=== PATIENT | male | born 1930 | race Caucasian/White ===

== ENCOUNTER 2017-05-26 14:32 | Emergency (ER) | payer OTHER ==
[~2017-05-26] VITALS: Ht 180.3 cm; Wt 87.3 kg
[~2017-05-26 14:32] MED LIST: ADULT LOW DOSE81 M1 PO; ADVAIR 500/501 DISK IH; ALBUTEROL SULF8.5 GM IH; ALDACTONE50 MG PO; ALTACE10 MG PO; ASPIR 8181 MG PO; ASPIR-LOW81 M1 PO; ASPIRIN E.C.81 M1 PO; ASPIRIN81 M1 PO; ATROVENT 00.5 MG/2.5 IH; AUGMENTIN500 MG PO; AVENTYL,PAMELOR10 MG PO; Advair HFA 115/21 IH; Aldactone PO; BACTRIM,SEPT1 TABLET PO; CARVEDILOL6.25 MG PO; CELEXA20 MG PO; CENTRUM SILVER1 EAC1 PO; CENTRUM SILVER1 EAC3 PO; CITALOPRAM HBR20 MG PO; CITRATE OF MAG296 ML PO; COUMADIN,JANTOVE2 MG PO; COZAAR100 MG PO; CYMBALTA30 MG PO; Cozaar PO; DULERA 200 MCG/13 GM IH; DUONEB 2.5-0.5 M3 ML AEROSOL; DUONEB 2.5-0.5 M3 ML IH; ENDOCET 5-3251 EACH PO; FLORASTOR250 MG PO; FUROSEMIDE20 MG PO; Flagyl PO; GABAPENTIN300 MG PO; GABAPENTIN600 MG PO; GUAIFENESIN400 MG PO; HYDROCODON-ACE1 EAC7 PO; HYDROCODON-ACE1 EACH; IMDUR30 MG; IMDUR30 MG PO; IMDUR60 MG PO; ISOSORBIDE MONO60 MG PO; Imdur PO; LASIX40 MG PO; LEVAQUIN500 MG PO; LISINOPRIL10 MG PO; LO-DOSE ASPIRIN81 M1 PO; LOPRESSOR25 MG PO; LORCET 5-325 M1 EACH PO; LOSARTAN; LOSARTAN POTAS100 MG PO; Lactinex,Floranex PO; Levaquin PO; Lopressor PO; METOPROLOL SUCC25 MG PO; MICRO-K,K-DUR,10 ME1 PO; MOBIC15 MG PO; MONOKET,ISMO20 MG PO; MONTELUKAST SOD10 MG PO; MORPHINE SULFAT15 MG PO; Marinol PO; NEURONTIN300 MG PO; NITROSTAT,NITR0.4 M1 SL; NITROSTAT0.4 MG SL; NORTRIPTYLINE H10 MG PO; NORVASC10 MG PO; NORVASC2.5 MG PO; NORVASC5 MG PO; Neurontin PO; Norvasc PO; PLAVIX75 MG PO; PREDNISONE10 MG PO; PRILOSEC40 MG PO; PROMETHAZINE HC25 M1 PO; PROTONIX40 MG PO; Protonix PO; Proventil,Ventolin H IH; RAPAFLO8 MG PO; REQUIP1 MG PO; REQUIP2 MG PO; SIMVASTATIN20 MG PO; SIMVASTATIN80 MG PO; SINGULAIR10 MG PO; TOPROL XL50 MG PO; TYLENOL EXTRA500 MG PO; Toprol XL PO; Tylenol Regular Stre PO; ULTRAM50 MG PO; VENTOLIN17 GM IH; VICODIN,LORT1 TABLET PO; Vancocin Oral Soluti PO; Vicodin,Lortab 5/500 PO; ZITHROMAX Z-PA250 MG PO; ZOCOR20 MG PO; ZOCOR80 M1 PO; ZOCOR80 MG PO; Zocor PO; celeXA PO; predniSONE PO
[2017-05-26 16:26] LABS: ADD MIUA? YES; BILIRUBIN NEGATIVE; BLOOD SMALL; COLOR AMBER ((YELLOW)); GLUCOSE (STRIP) NEGATIVE; KETONES 5; LEUKOCYTES NEGATIVE; NITRITE NEGATIVE; PROTEIN (STRIP) 100; SPECIFIC GRAVITY 1.023 (1.000-1.030)
[2017-05-26 16:36] LABS: HEMATOCRIT 39.9 % (38.0-50.0); MCH 30.6 PG (29.0-34.0); MCHC 33.1 G/DL (30.0-36.0); MCV 92.6 FL (86-99); MEAN PLAT.VOLUME 9.3 uM^3 (9.0-12.4); PLATELET COUNT 170 K/uL (156-360); RBC DIS.WIDTH-SD 47.8 % (39-53); RED BLOOD COUNT 4.31 M/uL (4.00-5.50); WHITE BLOOD COUNT 6.4 K/uL (4.1-10.2)
[2017-05-26 16:42] LABS: BACTERIA 1+ /HPF; CASTS PRESENT /LPF; CRYSTALS NONE SEEN; EPITHELIAL CELLS RARE /HPF; HYALINE CASTS 0-5 /LPF; MUCUS 3+ /LPF; RED BLOOD CELLS 0-5 /HPF (0-5); UCUL ADDED? NO; WHITE BLOOD CELLS 0-5 /HPF (0-5)
[2017-05-26 16:51] LABS: CHLORIDE 109 mEq/L (99-109); POTASSIUM 3.2 mEq/L (3.7-5.4); SODIUM 143 mEq/L (136-147)
[2017-05-26 16:53] LABS: GLUCOSE 91 mg/dL (70-99)
[2017-05-26 16:55] LABS: ANION GAP 11 MEQ/L (2-14)
[2017-05-26 16:57] LABS: GFR ESTIMATE (CALCULATED) > 59 mL/min/
[2017-05-26 16:58] LABS: UREA NITROGEN (BUN) 16 mg/dL (9-23)
[2017-05-26 17:01] LABS: TROP-I INTERPRETATION NEGATIVE; TROPONIN-I 0.02 ng/mL (0.0-0.30)
[2017-05-26 20:13] VITALS: BP 124/88
== END 2017-05-26 20:15 | disposition home or self-care (01) ==
LOC: EME 14:32
PROVIDERS: Physician Assistant Medical
DX: R42 Dizziness and giddiness (principal); R51 Headache; R06.02 Shortness of breath; I10 Essential (primary) hypertension; E78.5 Hyperlipidemia, unspecified; I25.10 Atherosclerotic heart disease of native coronary artery without angina pectoris; Z86.73 Personal history of transient ischemic attack (TIA), and cerebral infarction without residual deficits; Z85.72 Personal history of non-Hodgkin lymphomas; Z95.1 Presence of aortocoronary bypass graft; Z95.5 Presence of coronary angioplasty implant and graft; Z99.81 Dependence on supplemental oxygen; Z79.82 Long term (current) use of aspirin
CPT/HCPCS: 70450; 71010; 80048; 81003; 83880; 84484; 85027; 93005; 99281; 99284

== ENCOUNTER 2017-07-11 20:31 | Emergency (ER) | payer OTHER ==
[~2017-07-11] VITALS: Ht 180.3 cm; Wt 87.7 kg
[2017-07-11 21:24] LABS: HEMATOCRIT 34.7 % (38.0-50.0); MCH 31.1 PG (29.0-34.0); MCHC 33.4 G/DL (30.0-36.0); MEAN PLAT.VOLUME 9.4 uM^3 (9.0-12.4); PLATELET COUNT 109 K/uL (156-360); RBC DIS.WIDTH-CV 14.3 % (11.8-14.6); RBC DIS.WIDTH-SD 48.3 % (39-53); RED BLOOD COUNT 3.73 M/uL (4.00-5.50); WHITE BLOOD COUNT 6.6 K/uL (4.1-10.2)
[2017-07-11 21:40] LABS: CHLORIDE 110 mEq/L (99-109); POTASSIUM 3.8 mEq/L (3.7-5.4); SODIUM 144 mEq/L (136-147)
[2017-07-11 21:42] LABS: GLUCOSE 107 mg/dL (70-99)
[2017-07-11 21:43] LABS: ANION GAP 9 MEQ/L (2-14)
[2017-07-11 21:44] LABS: TOTAL BILIRUBIN 0.5 mg/dL (0.0-1.0)
[2017-07-11 21:46] LABS: ALKALINE PHOSPHATASE 62 IU/L (3-129); GFR ESTIMATE (CALCULATED) > 59 mL/min/
[2017-07-11 21:47] LABS: DIRECT BILIRUBIN 0.2 mg/dL (0.0-0.3); UREA NITROGEN (BUN) 19 mg/dL (9-23)
[2017-07-11 21:49] LABS: LIPASE 13 U/L (1.0-51.0)
[2017-07-11 21:53] LABS: TROP-I INTERPRETATION NEGATIVE; TROPONIN-I 0.03 ng/mL (0.0-0.30)
[2017-07-11 22:27] LABS: ADD MIUA? NO; BILIRUBIN NEGATIVE; BLOOD NEGATIVE; COLOR YELLOW ((YELLOW)); GLUCOSE (STRIP) NEGATIVE; KETONES NEGATIVE; LEUKOCYTES NEGATIVE; NITRITE NEGATIVE; PROTEIN (STRIP) 30; SPECIFIC GRAVITY 1.021 (1.000-1.030); UCUL ADDED? NO; UROBILINOGEN 0.2 MG/DL (0.2-1.0)
[2017-07-11] MEDS ORDERED: TRAMADOL HCL50 MG PO (23:25)
[2017-07-12 00:18] VITALS: BP 156/76
[2017-07-15] MEDS ORDERED: NEURONTIN300 MG PO ×2 (09:16)
== END 2017-07-12 00:19 | disposition home or self-care (01) ==
LOC: EME 20:31
PROVIDERS: Emergency Medicine
DX: M54.5 Low back pain (principal); R10.9 Unspecified abdominal pain; Z87.442 Personal history of urinary calculi; F03.90 Unspecified dementia, unspecified severity, without behavioral disturbance, psychotic disturbance, mood disturbance, and anxiety; E78.5 Hyperlipidemia, unspecified; I10 Essential (primary) hypertension; Z86.73 Personal history of transient ischemic attack (TIA), and cerebral infarction without residual deficits; Z85.72 Personal history of non-Hodgkin lymphomas; Z95.1 Presence of aortocoronary bypass graft; Z96.653 Presence of artificial knee joint, bilateral; Z88.0 Allergy status to penicillin
CPT/HCPCS: 71020; 74177; 80048; 80076; 81003; 83690; 84484; 85027; 93005; 99281; 99285

== ENCOUNTER 2017-07-13 16:31 | Emergency (ER) | payer OTHER ==
[~2017-07-13] VITALS: Ht 180.3 cm; Wt 83.0 kg
[~2017-07-13 16:31] MED LIST changes: +TRAMADOL HCL50 MG PO
[2017-07-13 17:00] VITALS: BP 130/61
[2017-07-15] MEDS ORDERED: NEURONTIN300 MG PO ×2 (09:16)
== END 2017-07-13 18:00 | disposition left against medical advice (07) ==
LOC: EME 16:31
DX: R10.9 Unspecified abdominal pain (principal); Z53.21 Procedure and treatment not carried out due to patient leaving prior to being seen by health care provider

== ENCOUNTER 2017-07-14 18:45 | Inpatient (IN) | payer OTHER ==
[~2017-07-14] VITALS: Ht 190.5 cm; Wt 129.4 kg
[2017-07-14 19:47] LABS: HEMATOCRIT 32.1 % (38.0-50.0); MCH 31.5 PG (29.0-34.0); MCV 92.8 FL (86-99); MEAN PLAT.VOLUME 9.3 uM^3 (9.0-12.4); PLATELET COUNT 116 K/uL (156-360); RBC DIS.WIDTH-CV 14.3 % (11.8-14.6); RBC DIS.WIDTH-SD 48.2 % (39-53); RED BLOOD COUNT 3.46 M/uL (4.00-5.50); WHITE BLOOD COUNT 5.6 K/uL (4.1-10.2)
[2017-07-14 19:58] LABS: CHLORIDE 110 mEq/L (99-109); POTASSIUM 3.6 mEq/L (3.7-5.4); SODIUM 142 mEq/L (136-147)
[2017-07-14 20:00] LABS: GLUCOSE 108 mg/dL (70-99)
[2017-07-14 20:01] LABS: ANION GAP 8 MEQ/L (2-14)
[2017-07-14 20:04] LABS: ALKALINE PHOSPHATASE 56 IU/L (3-129); GFR ESTIMATE (CALCULATED) > 59 mL/min/; TOTAL BILIRUBIN 1.1 mg/dL (0.0-1.0)
[2017-07-14 20:05] LABS: UREA NITROGEN (BUN) 19 mg/dL (9-23)
[2017-07-14 20:35] LABS: ADD MIUA? YES; BILIRUBIN NEGATIVE; BLOOD SMALL; COLOR YELLOW ((YELLOW)); GLUCOSE (STRIP) NEGATIVE; KETONES NEGATIVE; LEUKOCYTES NEGATIVE; NITRITE NEGATIVE; PROTEIN (STRIP) 30; SPECIFIC GRAVITY 1.021 (1.000-1.030)
[2017-07-14 20:40] LABS: BACTERIA NONE SEEN /HPF; EPITHELIAL CELLS RARE /HPF; HYALINE CASTS 0-5 /LPF; MUCUS TRACE /LPF; RED BLOOD CELLS 0-5 /HPF (0-5); UCUL ADDED? NO; WHITE BLOOD CELLS 0-5 /HPF (0-5)
[2017-07-14 21:49] LABS: DIRECT BILIRUBIN 0.5 mg/dL (0.0-0.3)
[2017-07-15 00:01] LABS: AMYLASE 61 IU/L (1-118)
[2017-07-15 00:10] LABS: LIPASE 4 U/L (1.0-51.0)
[2017-07-15 03:30] VITALS: BP 138/64
[2017-07-15 06:16] LABS: HEMATOCRIT 31.7 % (38.0-50.0); MCH 30.7 PG (29.0-34.0); MCHC 32.2 G/DL (30.0-36.0); MCV 95.5 FL (86-99); MEAN PLAT.VOLUME 9.2 uM^3 (9.0-12.4); PLATELET COUNT 110 K/uL (156-360); RBC DIS.WIDTH-CV 14.4 % (11.8-14.6); RBC DIS.WIDTH-SD 49.9 % (39-53); RED BLOOD COUNT 3.32 M/uL (4.00-5.50); WHITE BLOOD COUNT 5.2 K/uL (4.1-10.2)
[2017-07-15 06:40] LABS: ALKALINE PHOSPHATASE 62 IU/L (3-129); ANION GAP 7 MEQ/L (2-14); CHLORIDE 108 MEQ/L (99-109); GFR ESTIMATE (CALCULATED) > 59 mL/min/; GLUCOSE 93 mg/dL (70-99); SAMPLE HEMOLYSIS CHECK 0; SAMPLE ICTERIC CHECK 0; SAMPLE LIPEMIA CHECK 0; SODIUM 142 MEQ/L (136-147); TOTAL BILIRUBIN 1.3 MG/DL (0.0-1.0); UREA NITROGEN (BUN) 16 mg/dL (9-23)
[2017-07-15 07:21] VITALS: BP 151/75
[2017-07-15] MEDS ORDERED: OMEPRAZOLE40 M1 PO (09:15)
[2017-07-15] MEDS ORDERED: SINGULAIR10 MG PO (09:15)
[2017-07-15] MEDS ORDERED: NEURONTIN300 MG PO (09:16)
[2017-07-15] MEDS ORDERED: ELIQUIS5 MG PO (09:16)
[2017-07-15] MEDS ORDERED: LO-DOSE ASPIRIN81 M1 PO (09:16)
[2017-07-15] MEDS ORDERED: ULTRAM50 MG PO (09:17)
[2017-07-15 11:17] VITALS: BP 137/76
[2017-07-15 15:05] VITALS: BP 147/73
[2017-07-15 17:40] VITALS: BP 182/102
[2017-07-15 19:44] VITALS: BP 148/72
[2017-07-16 00:22] VITALS: BP 165/81
[2017-07-16 08:14] VITALS: BP 140/60
[2017-07-16 13:33] LABS: INTER. NORMALIZED RATIO 1.4; PROTHROMBIN TIME 15.2 SEC (10.2-12.9)
[2017-07-16 13:35] LABS: PTT 33.5 SEC (25-37)
[2017-07-16 15:00] VITALS: BP 117/70
[2017-07-16 20:13] VITALS: BP 153/70
[2017-07-17 01:03] VITALS: BP 152/84
[2017-07-17 05:37] VITALS: BP 140/78
[2017-07-17 08:42] VITALS: BP 171/78
[2017-07-17 08:59] LABS: HEMATOCRIT 33.4 % (38.0-50.0); MCH 30.8 PG (29.0-34.0); MCHC 33.5 G/DL (30.0-36.0); MCV 91.8 FL (86-99); MEAN PLAT.VOLUME 9.8 uM^3 (9.0-12.4); PLATELET COUNT 140 K/uL (156-360); RBC DIS.WIDTH-SD 47.6 % (39-53); RED BLOOD COUNT 3.64 M/uL (4.00-5.50); WHITE BLOOD COUNT 6.7 K/uL (4.1-10.2)
[2017-07-17 09:29] LABS: ALKALINE PHOSPHATASE 55 IU/L (3-129); ANION GAP 8 MEQ/L (2-14); CHLORIDE 105 MEQ/L (99-109); GFR ESTIMATE (CALCULATED) > 59 mL/min/; GLUCOSE 99 mg/dL (70-99); POTASSIUM 3.6 MEQ/L (3.7-5.4); SAMPLE HEMOLYSIS CHECK 0; SAMPLE ICTERIC CHECK 0; SAMPLE LIPEMIA CHECK 0; SODIUM 139 MEQ/L (136-147); TOTAL BILIRUBIN 0.9 MG/DL (0.0-1.0); UREA NITROGEN (BUN) 13 mg/dL (9-23)
[2017-07-17 11:35] VITALS: BP 145/63
[2017-07-17 13:40] LABS: TROP-I INTERPRETATION NEGATIVE
[2017-07-17 16:08] VITALS: BP 140/87
[2017-07-17 23:41] VITALS: BP 172/92
[2017-07-18 08:47] VITALS: BP 131/83
[2017-07-18 15:58] VITALS: BP 91/62
[2017-07-18 23:37] VITALS: BP 120/86
[2017-07-19 07:49] VITALS: BP 161/75
[2017-07-19 10:13] LABS: ANION GAP 11 MEQ/L (2-14); CHLORIDE 108 MEQ/L (99-109); POTASSIUM 3.4 MEQ/L (3.7-5.4); SAMPLE HEMOLYSIS CHECK 0; SAMPLE ICTERIC CHECK 0; SAMPLE LIPEMIA CHECK 0; SODIUM 143 MEQ/L (136-147)
[2017-07-19 10:15] LABS: HEMATOCRIT 37.2 % (38.0-50.0); MCH 30.4 PG (29.0-34.0); MCHC 32.8 G/DL (30.0-36.0); MCV 92.8 FL (86-99); RBC DIS.WIDTH-CV 14.5 % (11.8-14.6); RBC DIS.WIDTH-SD 49.2 % (39-53); RED BLOOD COUNT 4.01 M/uL (4.00-5.50); WHITE BLOOD COUNT 7.6 K/uL (4.1-10.2)
[2017-07-19 10:17] LABS: PLATELET COUNT 190 K/uL (156-360)
[2017-07-19 10:18] LABS: GFR ESTIMATE (CALCULATED) > 59 mL/min/; GLUCOSE 108 mg/dL (70-99); UREA NITROGEN (BUN) 17 mg/dL (9-23)
[2017-07-19 15:26] VITALS: BP 100/58
[2017-07-19 23:49] VITALS: BP 121/71
[2017-07-20 07:49] VITALS: BP 173/76
[2017-07-20 16:20] VITALS: BP 128/67
[2017-07-20 23:57] VITALS: BP 131/63
[2017-07-21 08:13] VITALS: BP 122/81
[2017-07-21 12:43] LABS: HEMATOCRIT 32.2 % (38.0-50.0); MCH 30.4 PG (29.0-34.0); MCHC 32.9 G/DL (30.0-36.0); MCV 92.3 FL (86-99); MEAN PLAT.VOLUME 9.4 uM^3 (9.0-12.4); PLATELET COUNT 184 K/uL (156-360); RBC DIS.WIDTH-CV 15.3 % (11.8-14.6); RBC DIS.WIDTH-SD 51.2 % (39-53); RED BLOOD COUNT 3.49 M/uL (4.00-5.50); WHITE BLOOD COUNT 6.7 K/uL (4.1-10.2)
[2017-07-21 13:10] LABS: ALKALINE PHOSPHATASE 43 IU/L (3-129); ANION GAP 8 MEQ/L (2-14); CHLORIDE 111 MEQ/L (99-109); GFR ESTIMATE (CALCULATED) > 59 mL/min/; GLUCOSE 120 mg/dL (70-99); POTASSIUM 3.3 MEQ/L (3.7-5.4); SAMPLE HEMOLYSIS CHECK 0; SAMPLE ICTERIC CHECK 0; SAMPLE LIPEMIA CHECK 0; SODIUM 146 MEQ/L (136-147); UREA NITROGEN (BUN) 20 mg/dL (9-23)
[2017-07-21 13:23] LABS: TOTAL BILIRUBIN 0.5 MG/DL (0.0-1.0)
[2017-07-21] MEDS ORDERED: URSODIOL300 MG PO (15:11)
[2017-07-21] MEDS ORDERED: LOPRESSOR25 MG PO (15:11)
[2017-07-21] MEDS ORDERED: SENNA PLUS TAB1 EACH PO (15:12)
[2017-07-21] MEDS ORDERED: OXYCODONE-APAP1 EACH PO (15:14)
[2017-07-21 15:35] VITALS: BP 143/88
[2017-07-22] MEDS ORDERED: LISINOPRIL10 MG PO (03:31)
[2017-07-22] MEDS ORDERED: CARVEDILOL12.5 MG PO (03:31)
[2017-07-22] MEDS ORDERED: SIMVASTATIN80 MG PO (03:34)
== END 2017-07-21 20:12 | DRG 446 ==
LOC: EME 18:45 → 5SOUTH 07-15 01:17 → EDOF 07-15 01:17 → ENRESERV 07-15 01:23 → 5SOUTH 07-15 03:05
PROVIDERS: Hospitalist; Internal Medicine; Nurse Practitioner Family; Radiology Diagnostic Radiology
PROC: 0F9430Z Drainage of Gallbladder with Drainage Device, Percutaneous Approach (ICD-10-PCS; principal; 2017-07-16)
DX: K80.12 Calculus of gallbladder with acute and chronic cholecystitis without obstruction (principal); I71.2 Thoracic aortic aneurysm, without rupture; I12.9 Hypertensive chronic kidney disease with stage 1 through stage 4 chronic kidney disease, or unspecified chronic kidney disease; N18.9 Chronic kidney disease, unspecified; E87.6 Hypokalemia; I48.0 Paroxysmal atrial fibrillation; K57.30 Diverticulosis of large intestine without perforation or abscess without bleeding; N20.0 Calculus of kidney; I25.5 Ischemic cardiomyopathy; I35.0 Nonrheumatic aortic (valve) stenosis; G47.33 Obstructive sleep apnea (adult) (pediatric); I25.10 Atherosclerotic heart disease of native coronary artery without angina pectoris; D64.9 Anemia, unspecified; E78.5 Hyperlipidemia, unspecified; J45.909 Unspecified asthma, uncomplicated; F03.90 Unspecified dementia, unspecified severity, without behavioral disturbance, psychotic disturbance, mood disturbance, and anxiety; Z66 Do not resuscitate; R06.09 Other forms of dyspnea; F32.9 Major depressive disorder, single episode, unspecified; F41.9 Anxiety disorder, unspecified; Z79.82 Long term (current) use of aspirin; Z85.72 Personal history of non-Hodgkin lymphomas; Z86.718 Personal history of other venous thrombosis and embolism; Z86.73 Personal history of transient ischemic attack (TIA), and cerebral infarction without residual deficits; Z95.1 Presence of aortocoronary bypass graft; Z96.653 Presence of artificial knee joint, bilateral; Z95.5 Presence of coronary angioplasty implant and graft
CPT/HCPCS: 49405; 71010; 71020; 71275; 74000; 74176; 74230; 76705; 78227; 80048; 80053; 81003; 82150; 82248; 83605; 83690; 84484; 85027; 85610; 85730; 87040; 87070; 87075; 87076; 87077; 87186; 87205; 87801; 92610 GN; 92611 GN; 93005; 93306; 94799; 97530 GP; 99281; 99285; A9510; C1769; J1644; J1940; J1956; J2270; J2405; J3010; J3480; J7030; J7040; S0028; S0030

== ENCOUNTER 2017-07-22 01:04 | Emergency (ER) | payer OTHER ==
[~2017-07-22] VITALS: Ht 188 cm; Wt 78.0 kg
[~2017-07-22 01:04] MED LIST changes: +ELIQUIS5 MG PO; +OMEPRAZOLE40 M1 PO; +OXYCODONE-APAP1 EACH PO; +SENNA PLUS TAB1 EACH PO; +URSODIOL300 MG PO
[2017-07-22 02:58] LABS: EOSINOPHIL (%) 0.1 % (0-5); HEMATOCRIT 33.5 % (38.0-50.0); IMMATURE GRANULOCYTE (%) 0.4 % (0.0-0.7); INSTRUMENT ABS NEUTROPHIL CT 5.5 K/uL; LYMPHOCYTE COUNT 0.8 K/uL (1.0-2.8); MCH 30.5 PG (29.0-34.0); MCHC 33.4 G/DL (30.0-36.0); MCV 91.3 FL (86-99); MEAN PLAT.VOLUME 9.7 uM^3 (9.0-12.4); MONOCYTE (%) 8.5 % (3-12); MONOCYTE COUNT 0.6 K/uL (0-0.8); NEUTROPHIL (%) 78.8 % (45-76); NEUTROPHIL COUNT 5.5 K/uL (1.8-6.4); PLATELET COUNT 195 K/uL (156-360); RBC DIS.WIDTH-CV 15.3 % (11.8-14.6); RBC DIS.WIDTH-SD 51.2 % (39-53); RED BLOOD COUNT 3.67 M/uL (4.00-5.50)
[2017-07-22 03:09] LABS: CHLORIDE 112 mEq/L (99-109); POTASSIUM 3.5 mEq/L (3.7-5.4); SODIUM 145 mEq/L (136-147)
[2017-07-22 03:11] LABS: GLUCOSE 123 mg/dL (70-99)
[2017-07-22 03:12] LABS: ANION GAP 12 MEQ/L (2-14)
[2017-07-22 03:13] LABS: TOTAL BILIRUBIN 0.5 mg/dL (0.0-1.0)
[2017-07-22 03:15] LABS: ALKALINE PHOSPHATASE 51 IU/L (3-129); GFR ESTIMATE (CALCULATED) > 59 mL/min/
[2017-07-22 03:16] LABS: UREA NITROGEN (BUN) 18 mg/dL (9-23)
[2017-07-22 03:18] LABS: LIPASE 8 U/L (1.0-51.0)
[2017-07-22] MEDS ORDERED: CARVEDILOL12.5 MG PO (03:31)
[2017-07-22] MEDS ORDERED: LISINOPRIL10 MG PO (03:31)
[2017-07-22] MEDS ORDERED: SIMVASTATIN80 MG PO (03:34)
[2017-07-22 05:07] LABS: ADD MIUA? YES; BILIRUBIN NEGATIVE; BLOOD NEGATIVE; COLOR YELLOW ((YELLOW)); GLUCOSE (STRIP) NEGATIVE; KETONES 20; LEUKOCYTES TRACE; NITRITE NEGATIVE; PROTEIN (STRIP) 30; UROBILINOGEN 0.2 MG/DL (0.2-1.0)
[2017-07-22 05:13] LABS: BACTERIA NONE SEEN /HPF; EPITHELIAL CELLS RARE /HPF; MUCUS TRACE /LPF; RED BLOOD CELLS 0-5 /HPF (0-5); UCUL ADDED? NO; WHITE BLOOD CELLS 0-5 /HPF (0-5)
[2017-07-22 05:20] LABS: SPECIFIC GRAVITY 1.062 (1.000-1.030)
[2017-07-22 07:21] VITALS: BP 138/66
== END 2017-07-22 08:38 ==
LOC: EME 01:04
PROVIDERS: Emergency Medicine
DX: E86.0 Dehydration (principal); K80.20 Calculus of gallbladder without cholecystitis without obstruction; I71.4 Abdominal aortic aneurysm, without rupture; Z98.890 Other specified postprocedural states; F03.90 Unspecified dementia, unspecified severity, without behavioral disturbance, psychotic disturbance, mood disturbance, and anxiety; I10 Essential (primary) hypertension; E78.5 Hyperlipidemia, unspecified; I25.10 Atherosclerotic heart disease of native coronary artery without angina pectoris; I48.91 Unspecified atrial fibrillation; Z95.1 Presence of aortocoronary bypass graft; Z87.442 Personal history of urinary calculi; Z86.73 Personal history of transient ischemic attack (TIA), and cerebral infarction without residual deficits; Z96.653 Presence of artificial knee joint, bilateral; Z85.72 Personal history of non-Hodgkin lymphomas; Z88.0 Allergy status to penicillin; Z79.82 Long term (current) use of aspirin
CPT/HCPCS: 74177; 80053; 81003; 83690; 85025; 93005; 99281; 99285; J3010; J7030

== ENCOUNTER 2017-11-21 11:39 | Inpatient (IN) | payer OTHER ==
[~2017-11-21] VITALS: Ht 180.3 cm; Wt 71.3 kg
[~2017-11-21 11:39] MED LIST changes: +CARVEDILOL12.5 MG PO
[2017-11-21 12:25] LABS: HEMATOCRIT 33.5 % (38.0-50.0); HEMOGLOBIN 11.1 G/DL (12.5-16.6); MCH 30.4 PG (29.0-34.0); MCHC 33.1 G/DL (30.0-36.0); MCV 91.8 FL (86-99); PLATELET COUNT 116 K/uL (156-360); RBC DIS.WIDTH-CV 14.5 % (11.8-14.6); RED BLOOD COUNT 3.65 M/uL (4.00-5.50); WHITE BLOOD COUNT 5.1 K/uL (4.1-10.2)
[2017-11-21 12:32] LABS: INTER. NORMALIZED RATIO 1.2
[2017-11-21 12:34] LABS: ALBUMIN 3.5 g/dL (3.2-4.8); CHLORIDE 110 mEq/L (99-109); POTASSIUM 4.2 mEq/L (3.7-5.4); PTT 31.1 SEC (25-37); SODIUM 141 mEq/L (136-147)
[2017-11-21 12:35] LABS: MAGNESIUM 2.2 mg/dL (1.3-2.7)
[2017-11-21 12:37] LABS: GLUCOSE 98 mg/dL (70-99); TOTAL PROTEIN 6.3 g/dL (6.4-8.3)
[2017-11-21 12:39] LABS: TOTAL BILIRUBIN 0.4 mg/dL (0.0-1.0)
[2017-11-21 12:40] LABS: ALKALINE PHOSPHATASE 55 IU/L (3-129)
[2017-11-21 12:41] LABS: GFR ESTIMATE (CALCULATED) > 59 mL/min/ (58.99-99999)
[2017-11-21 12:42] LABS: AST (GOT) 19 IU/L (2-34); UREA NITROGEN (BUN) 22 mg/dL (9-23)
[2017-11-21 12:44] LABS: ALT (GPT) 9 IU/L (3-49); LIPASE 12 U/L (1.0-51.0)
[2017-11-21 12:46] LABS: TROP-I INTERPRETATION NEGATIVE; TROPONIN-I 0.03 ng/mL (0.0-0.30)
[2017-11-21] MEDS ORDERED: LOSARTAN POTASS25 MG PO (16:38)
[2017-11-21] MEDS ORDERED: LASIX40 MG PO (16:39)
[2017-11-21 16:52] LABS: TROP-I INTERPRETATION NEGATIVE; TROPONIN-I 0.03 ng/mL (0.0-0.30)
[2017-11-21 21:15] VITALS: BP 140/70; BP 144/70
[2017-11-21 23:02] LABS: TROP-I INTERPRETATION NEGATIVE; TROPONIN-I 0.03 ng/mL (0.0-0.30)
[2017-11-22 00:01] VITALS: BP 138/84
[2017-11-22 04:19] VITALS: BP 133/60
[2017-11-22 06:05] LABS: HEMATOCRIT 34.1 % (38.0-50.0); HEMOGLOBIN 11.2 G/DL (12.5-16.6); MCH 30.3 PG (29.0-34.0); MCHC 32.8 G/DL (30.0-36.0); MCV 92.2 FL (86-99); PLATELET COUNT 116 K/uL (156-360); RBC DIS.WIDTH-CV 14.5 % (11.8-14.6); RBC DIS.WIDTH-SD 48.6 % (39-53); WHITE BLOOD COUNT 5.4 K/uL (4.1-10.2)
[2017-11-22 06:23] LABS: TROP-I INTERPRETATION NEGATIVE; TROPONIN-I 0.04 ng/mL (0.0-0.30)
[2017-11-22 06:31] LABS: CHLORIDE 110 MEQ/L (99-109); CREATININE 0.9 MG/DL (0.6-1.3); GFR ESTIMATE (CALCULATED) > 59 mL/min/ (58.99-99999); GLUCOSE 89 mg/dL (70-99); POTASSIUM 4.2 MEQ/L (3.7-5.4); SODIUM 144 MEQ/L (136-147); UREA NITROGEN (BUN) 20 mg/dL (9-23)
[2017-11-22 08:50] VITALS: BP 112/70
[2017-11-22 12:02] VITALS: BP 143/78
[2017-11-22 15:54] VITALS: BP 137/69
[2017-11-22 19:30] VITALS: BP 144/63
[2017-11-23] VITALS (10 sets, daily range): BP systolic 82–140; BP diastolic 54–77
[2017-11-23 06:34] LABS: CHLORIDE 105 MEQ/L (99-109); CREATININE 1.1 MG/DL (0.6-1.3); GFR ESTIMATE (CALCULATED) > 59 mL/min/ (58.99-99999); GLUCOSE 95 mg/dL (70-99); SODIUM 139 MEQ/L (136-147); UREA NITROGEN (BUN) 25 mg/dL (9-23)
[2017-11-24] VITALS: BP 96/57
[2017-11-24 04:30] VITALS: BP 100/60
[2017-11-24 08:00] VITALS: BP 107/61
[2017-11-24] MEDS ORDERED: NITROSTAT0.4 MG SL (11:33)
[2017-11-24] MEDS ORDERED: LOPRESSOR25 MG PO (11:33)
[2017-11-24 11:43] VITALS: BP 114/68
== END 2017-11-24 15:37 | disposition home health service (06) | DRG 309 ==
LOC: EME 11:39 → EDOF 18:10 → 4EAST 18:10 → ENRESERV 18:11 → 4EAST 20:42 → ENPENDDIS 11-24 → 4EAST 11-24 15:37
PROVIDERS: Emergency Medicine; Hospitalist; Internal Medicine
DX: I47.2 Ventricular tachycardia (principal); I13.0 Hypertensive heart and chronic kidney disease with heart failure and stage 1 through stage 4 chronic kidney disease, or unspecified chronic kidney disease; L89.320 Pressure ulcer of left buttock, unstageable; I50.9 Heart failure, unspecified; J44.9 Chronic obstructive pulmonary disease, unspecified; N18.3 Chronic kidney disease, stage 3 (moderate); I25.5 Ischemic cardiomyopathy; Z99.81 Dependence on supplemental oxygen; D69.6 Thrombocytopenia, unspecified; D64.9 Anemia, unspecified; E78.5 Hyperlipidemia, unspecified; G47.33 Obstructive sleep apnea (adult) (pediatric); I25.10 Atherosclerotic heart disease of native coronary artery without angina pectoris; I48.0 Paroxysmal atrial fibrillation; Z66 Do not resuscitate; Z79.01 Long term (current) use of anticoagulants; Z85.71 Personal history of Hodgkin lymphoma; Z86.718 Personal history of other venous thrombosis and embolism; Z95.1 Presence of aortocoronary bypass graft; I35.0 Nonrheumatic aortic (valve) stenosis; R07.89 Other chest pain; F03.90 Unspecified dementia, unspecified severity, without behavioral disturbance, psychotic disturbance, mood disturbance, and anxiety; Z86.73 Personal history of transient ischemic attack (TIA), and cerebral infarction without residual deficits
CPT/HCPCS: 71045; 80048; 80048 91; 80053; 83605; 83690; 83735; 84484; 85025; 85027; 85610; 85730; 86850; 86900; 86901; 87641; 93005; 94799; 99281; 99285; J1940; J7030

== ENCOUNTER 2018-04-03 11:28 | Emergency (ER) | payer OTHER ==
[~2018-04-03] VITALS: Ht 180.3 cm; Wt 75.9 kg
[~2018-04-03 11:28] MED LIST changes: +LOSARTAN POTASS25 MG PO
[2018-04-03 12:52] VITALS: BP 144/67
== END 2018-04-03 12:53 | disposition home or self-care (01) ==
LOC: EME 11:28
DX: H57.12 Ocular pain, left eye (principal); H53.8 Other visual disturbances; I10 Essential (primary) hypertension; E78.5 Hyperlipidemia, unspecified; J45.909 Unspecified asthma, uncomplicated; F41.9 Anxiety disorder, unspecified; F32.9 Major depressive disorder, single episode, unspecified; F03.90 Unspecified dementia, unspecified severity, without behavioral disturbance, psychotic disturbance, mood disturbance, and anxiety; Z79.01 Long term (current) use of anticoagulants; Z79.82 Long term (current) use of aspirin; Z87.442 Personal history of urinary calculi; Z86.73 Personal history of transient ischemic attack (TIA), and cerebral infarction without residual deficits; Z95.1 Presence of aortocoronary bypass graft; Z95.5 Presence of coronary angioplasty implant and graft; Z96.653 Presence of artificial knee joint, bilateral; Z86.79 Personal history of other diseases of the circulatory system; Z98.890 Other specified postprocedural states; Z90.49 Acquired absence of other specified parts of digestive tract; Z85.72 Personal history of non-Hodgkin lymphomas; Z88.0 Allergy status to penicillin
CPT/HCPCS: 99281; 99284